=== PATIENT | female | born 1945 | race Caucasian/White ===

== ENCOUNTER → 2016-12-24 | Outpatient (CLI) | payer MEDICARE, OTHER ==
--- NOTE | 2016-12-25 10:01 | RADRPT ---
PROCEDURE: Right knee. CLINICAL INDICATION: Pain. TECHNIQUE: 4 views including AP, lateral, oblique and sunrise views of the right knee were obtain ed. The images reviewed on a PACS workstation. COMPARISON: None. FINDINGS: There is no acute fracture or dislocation. The patella is intact. There is moderate narrowing of t he lateral compartment and patellofemoral joint with osteophytes. There is spurring of the tibial s pine. There is no joint effusion. Bone mineralization is mildly decreased. There is no radiopaque foreign body or abnormal calcification. IMPRESSION: No evidence of fracture. Mild to moderate osteoarthritis. .Kingston Olmstead MD, MD Date Time Electronically viewed and signed by .Kingston Olmstead MD, on 12/25/2016 00:28 .T/
== END | disposition home or self-care (01) ==
LOC: HKI 09:35
PROVIDERS: ATTEND Orthopaedic Surgery
DX: M17.11 Unilateral primary osteoarthritis, right knee (principal); M25.561 Pain in right knee; I35.0 Nonrheumatic aortic (valve) stenosis; Z85.43 Personal history of malignant neoplasm of ovary; Z87.891 Personal history of nicotine dependence; Z88.1 Allergy status to other antibiotic agents
CPT/HCPCS: 20610; 73564; G0463; J7327